=== PATIENT | male | born 1995 | race Caucasian/White ===

== ENCOUNTER 2021-10-05 18:01 | Emergency (ER) | payer BC, SELFPAY ==
[2021-10-05 19:27] VITALS: BP 133/89; PULSE 64; RESP 18; TEMP 36; O2SAT 99; BMI 18.2
--- NOTE | 2021-10-05 21:27 | ED_ITS ---
HPI - Wound/Laceration General Chief Complaint: Wound/Laceration Stated Complaint: head injury lac Source: patient Mode of arrival: ambulatory Limitations: no limitations History of Present Illness HPI narrative: 26-year-old male presents for laceration above the left eyebrow after hitting his head on a car door. Patient stated he slipped and hit his head into the door. Patient states that he did not lose consciousness. His tetanus shot was updated last year. Does not report any dizziness, changes in vision, neck pain, weakness, or headache. Onset (ago): hour(s) (Within the hour of arrival) Location: face (Above the left eyebrow) Place: outdoors Patient tetanus UTD: Yes Context: accidental Associated symptoms: other (Bleeding) Treatments prior to arrival: bandage Related Data Allergies Allergy/AdvReac Type Severity Reaction Status Date / Time latex [LATEX] Allergy Mild RASH Verified 10/05/21 19:26 pineapple [PINEAPPLE] Allergy Mild RASH Verified 10/05/21 19:26 lobster Allergy Unknown Uncoded 10/05/21 19:27 Review of Systems Review of Systems: Constitutional: No Fever, No Chills ENT/Mouth: No Ear Pain, No Hoarseness, No sore throat Eyes: No Eye Pain, No Swelling, No Redness, No Foreign Body Cardiovascular: No Chest Pain, No SOB Respiratory: No Cough, No Dyspnea Gastrointestinal: No Nausea, No Vomiting, No Diarrhea, No abdominal Pain Genitourinary: No Dysuria, No Hematuria Musculoskeletal: positive left eyebrow pain, No Myalgias, No Joint Swelling Skin: Positive laceration above the left eyebrow, No Skin lacerations, No rash Neuro: No Weakness, No Numbness, No Paresthesias, No Loss of Consciousness, No Dizziness, No Headache Psych: No Anxiety/Panic, No Depression Heme/Lymph: no easy bruising, no Lymphadenopathy Endocrine: No Polyuria, No Polydipsia Yes all other systems are reviewed and are negative [facility] Past Medical History Attestation statement: The following information was validated with the patient. Source: old records reviewed Social History Social History Advance Directives: No Advance Directives Information Provided: No Physical Exam Vital Signs: Vital Signs: Last Vital Signs Temp 96.8 F 10/05/21 19:27 Pulse 64 10/05/21 19:27 Resp 18 10/05/21 19:27 BP 133/89 10/05/21 19:27 Pulse Ox 99 10/05/21 19:27 O2 Del Method 10/05/21 19:27 BMI result Body Mass Index 18.2 Appearance: Alert. Oriented X3. No acute distress. Eyes: Pupils equal, round and reactive to light. ENT: Pharynx normal. Neck: Normal inspection. Neck supple. CVS: Normal heart rate and rhythm. Pulses normal. Respiratory: No respiratory distress. Breath sounds normal. Abdomen: Soft and nontender. Skin: 2 cm laceration starting at the center of the left eyebrow, Skin warm and dry. Normal skin color. Normal skin turgor. Extremities: No lower extremity edema. Gait well-balanced well coordinated. Neuro: No motor deficit. No sensory deficit. Cranial nerves 2-12 intact. Course Course Course Narrative: 26-year-old male presents with laceration above the left eyebrow. States that he hit his head against a car door because he slipped while running. He does not report any prodromal events, denies headache, neck pain, and changes in vision. HEENT exam is negative, no vertebral tenderness or step-offs. Tdap vaccine was updated last year. Plan of care is to suture. PECARN score is 0. No indication for imaging at this time. 23:13 prepped and draped in sterile fashion. Please refer to procedure note for full details. Patient tolerated procedure well. Patient verbalizes understanding that he must return in 5-7 days to have sutures removed. Patient verbalized understanding of and agrees to plan of care discharge home. Verbalized understanding of signs symptoms indicating need for emergent intervention. MDM - Wound/Laceration Differential Diagnosis Differential diagnosis: Likely laceration Medical Records Attestation: I reviewed the patient's medical records. Procedures Laceration Laceration 1: Site: face Side (If applicable): left Size (cm): 2 Description: linear Depth: simple, single layer Local Anesthetic: lidocaine 1% Amount of anesthesia used (mL): 4 Pre-repair: wound explored, irrigated extensively and deep structures intact Skin layer closed with: nylon Size (cm): 6-0 Number of sutures: 7 Technique: simple, interrupted Discharge Plan Discharge Clinical Impression: Facial laceration Patient Disposition: Home, Self-Care Instructions: Care For Your Stitches (ED), Facial Laceration (ED) Additional Instructions: You were evaluated for facial laceration. We placed 7 sutures to the laceration above your left eyebrow. Please return in 5-7 days to have sutures removed. You may present to Urgent Care, primary care physician or emergency department. If you notice any indication of infection please return for evaluation. Use Mederma scar ointment to help reduce scarring. Follow the directions on the package. Thank you for choosing this emergency department for evaluation. Please follow-up with primary care physician as needed. Return to the emergency department for any new, concerning, or worsening symptoms. Interventions: ED Discharge Assessment Last Done: 10/05/21 23:22 Discharge Date/Time: 10/05/21 23:23
[2021-10-05] MEDS: Lidocaine HCl 1 % MPF 2 ML VIAL INFILTRATI (21:41)
== END 2021-10-05 23:23 | disposition home or self-care (01) ==
PROVIDERS: Emergency Provider Emergency Medicine
DX: S01.112A Laceration without foreign body of left eyelid and periocular area, initial encounter (principal); W22.09XA Striking against other stationary object, initial encounter; Y93.02 Activity, running; Y92.810 Car as the place of occurrence of the external cause; Y99.9 Unspecified external cause status
CPT/HCPCS: 12011; 90471; 99282; 99284